=== PATIENT | male | born 1990 | race Caucasian/White ===

== ENCOUNTER 2017-01-22 13:01 | Emergency (ER) | payer SELFPAY ==
[~2017-01-22] VITALS: Ht 172.7 cm; Wt 69.0 kg
[2017-01-22 13:02] VITALS: BP 120/74; PULSE 72; RESP 16; TEMP 97.9; O2SAT 97
== END 2017-01-22 15:55 | disposition left against medical advice (07) ==
LOC: NED 13:01
DX: R10.9 Unspecified abdominal pain (principal)
CPT/HCPCS: 99281

== ENCOUNTER 2017-01-24 02:56 | Emergency (ER) | payer OTHER ==
[~2017-01-24] VITALS: Ht 172.7 cm; Wt 69.0 kg
[2017-01-24 03:00] VITALS: BP 140/88; PULSE 85; RESP 16; TEMP 97.9; O2SAT 97
[2017-01-24] MEDS ORDERED: OMEGCAP PO (10:08)
[2017-01-24] MEDS ORDERED: ALPR.5 PO (10:20)
== END 2017-01-24 03:14 | disposition left against medical advice (07) ==
LOC: NED 02:56
DX: F99 Mental disorder, not otherwise specified (principal)
CPT/HCPCS: 99281

== ENCOUNTER 2017-01-24 07:02 | Emergency (ER) | payer OTHER ==
[~2017-01-24] VITALS: Ht 167.6 cm; Wt 70.0 kg
[2017-01-24 07:05] VITALS: BP 130/70; PULSE 85; RESP 15; TEMP 98.1; O2SAT 96
[2017-01-24] MEDS ORDERED: OMEGCAP PO (10:08)
[2017-01-24] MEDS ORDERED: ALPR.5 PO (10:20)
--- NOTE | 2017-01-24 10:21 | PD ---
HPI Chief Complaint: Anxiety Time Seen by Provider: 10:09 Travel History International Travel<30 days: No Contact w/Intl Traveler<30days: No Traveled to known affect area: No History of Present Illness HPI 26-year-old healthy male here with complaint of anxiety. Patient immigrated from [place] approximately 5 months ago. He was studying [place] in [place] and then came to [facility] proximally 2 weeks ago to study deviation. He states that classes have been much harder than he anticipated. He is anxious and is missing home. He is having issues sleeping at night with racing thoughts , spells as though he is unable to turn off his brain. He feels so anxious that sometimes he gets palpitations had a nauseous feeling. He has not felt sad or depressed, but does fill home sick. He presents to the ER now for the symptoms. Prior to this he denies a history of issues with anxiety, depression , insomnia, etc. PFSH Past Medical History Medical History: Denies Significant Hx Influenza Vaccination: No Past Surgical History Surgical History: No Previous Surgery Social History Alcohol Use: No Tobacco Use: No Substance Use: No Allergies-Medications (Allergen,Severity, Reaction): Coded Allergies: No Known Allergies (Unverified , 01/24/17) Reported Meds & Prescriptions Reported Meds & Active Scripts Active Reported [place]errillos-3 Fish Oil/Vitamin (Fish Oil-Cholecalciferol) 1,000-1,000 Mg Cap 0.5 Cap PO DAILY Review of Systems Except as stated in HPI: all other systems reviewed are Neg Physical Exam Narrative GENERAL: Well-appearing male in no acute distress SKIN: Focused skin assessment warm/dry. HEAD: normocephalic. EYES: No scleral icterus. No injection or drainage. ENT: Mucous membranes pink and moist. NECK: Supple CARDIOVASCULAR: Regular rate and rhythm. No murmur appreciated. RESPIRATORY: No accessory muscle use. Clear to auscultation. Breath sounds equal bilaterally. GASTROINTESTINAL: Abdomen soft, non-tender, nondistended. MUSCULOSKELETAL: Normal Gait NEUROLOGICAL: Awake and alert. Normal speech. PSYCHIATRIC: Euthymic mood and affect. Admits to feeling lonely but not depressed, suicidal, homicidal. Denies any delusions or hallucinations. Admits to feeling anxious and having trouble turning off his mind at night when trying to sleep. Data Data Last Documented VS Vital Signs Date Time Temp Pulse Resp B/P Pulse Ox O2 Delivery O2 Flow Rate FiO2 01/24/17 07:05 98.1 85 15 130/70 96 Orders Lorazepam Inj (Ativan Inj) (01/24/17 10:30) [facility] Medical Decision Making Medical Screen Exam Complete: Yes Emergency Medical Condition: Yes Medical Record Reviewed: Yes Differential Diagnosis 26-year-old male here with complaint of anxiety. Patient's symptoms clearly seem somewhat situational with his recent immigration, academic studies, etc. He certainly may benefit from relaxation techniques in addition to short course of benzodiazepine and outpatient resources follow-up. Narrative Course Patient given dose of Ativan here and will be discharged home with small prescription of Xanax and outpatient resources. Diagnosis Primary Impression: Anxiety Additional Impression: Adjustment reaction Qualified Code: F43.22 - Adjustment disorder with anxious mood Referrals: Josef Iqbal MD call for appointment [facility] for appointment Patient Instructions: Anxiety (ED), Anxiolysis in Adults (ED), General Instructions Additional Instructions: Xanax as needed for anxiety. Relaxation exercises as discussed. Follow up with outpatient resources as provided. Med/Other Pt SpecificInfo: Prescription(s) given Scripts Alprazolam (Xanax)0.5 Mg Tab0.5 Mg PO Q6H PRN (ANXIETY) #15 TAB Ref 0 Prov:Leydi Ferguson MD 01/24/17 Disposition: 01 DISCHARGE HOME Condition: Stable Leydi Ferguson MD Jan 24, 2017 10:21
[2017-01-24] MEDS ORDERED: LORazepam 2 MG/ML VIAL IM ONE (10:30)
== END 2017-01-24 13:24 | disposition home or self-care (01) ==
LOC: NEPB 07:02
DX: F43.22 Adjustment disorder with anxiety (principal)
CPT/HCPCS: 96372; 99283; J2060